=== PATIENT | female | born 1980 | race Caucasian/White ===

== ENCOUNTER 2023-08-02 12:00 | Outpatient (CLI) | payer OTHER ==
[2023-08-02 12:50] LABS: Bilirubin Neg (Negative); Blood, Urine 250 (Negative); Clarity Clear (Clear); Glucose, Urine (Dipstick) Normal (Negative); Ketone, Urine Negative (Negative); Leukocyte 25 (Negative); Nitrite Negative (Negative); Protein, Urine (Dipstick) Negative (Neg-Trace); Urobilinogen Normal mg/dL (Less than 2)
[2023-08-02 12:58] LABS: Hemoglobin 14.9 g/dL (12.0-15.5); Mean Corpuscular HGB CONC 34.7 g/dL (32.0-36.0); Mean Corpuscular Hemoglobin 31.2 pg (27.0-33.0); Mean Platelet Volume 12.2 fl (7.4-10.4); Platelet Count 214 10x3/uL (150-450); RBC Distribution Width 13.2 % (11.5-14.5); Red Blood Cell (RBC) Count 4.78 10x6/uL (3.90-5.03)
[2023-08-02 13:08] LABS: INR-International Normal Ratio 0.9; PTT 24.8 sec (22.0-33.0); Prothrombin Time 10.2 sec (9.5-12.1)
[2023-08-02 13:17] LABS: Anion Gap 12 mmol/L (10-20); BUN (Urea Nitrogen) 14 mg/dL (7.0-18.7); Calc. Creatinine Clearance 0 mL/min (70-130); Calcium 9.3 mg/dL (7.8-10.44); Carbon Dioxide 28 mmol/L (22-29); Chloride 104 mmol/L (98-107); Estimated GFR 86; Glucose 125 mg/dL (70-105); Potassium 4.2 mmol/L (3.5-5.1); Sodium 140 mmol/L (136-145)
[2023-08-02 13:27] LABS: Bacteria/HPF 1+ HPF (None Seen)
[2023-08-02 13:28] LABS: Calcium Oxalate Crystals Rare HPF (None Seen)
== END 2023-08-02 12:01 | disposition home or self-care (01) ==
LOC: LABBT 12:00
PROVIDERS: ATTEND Urology
DX: Z01.818 Encounter for other preprocedural examination (principal); I10 Essential (primary) hypertension; N20.0 Calculus of kidney; E66.01 Morbid (severe) obesity due to excess calories
CPT/HCPCS: 80048; 81001; 85027; 85610; 85730; 87086; 93005; 93010

== ENCOUNTER 2023-08-16 09:10 | Day surgery (SDC) | payer OTHER ==
[2023-08-02 12:36] VITALS: BMI 49.8
[2023-08-16] MEDS ORDERED: SUCCINYLCHOLINE/SOD CL,ISO/PF 200 MG/10 ML SYRINGE FS ONE (11:10)
[2023-08-16] MEDS ORDERED: fentaNYL PF 100 MCG/2 ML SYRINGE ONE ×2 (11:10→12:07)
[2023-08-16] MEDS ORDERED: Rocuronium Bromide 10 MG/ML (10ML VIAL) ONE (11:10)
[2023-08-16] MEDS ORDERED: PROPOFOL 20 ML ONE (11:11)
[2023-08-16] MEDS ORDERED: Midazolam HCl 2 mg/2 ml Vial ONE (11:11)
[2023-08-16] MEDS ORDERED: LevoFLOXacin D5W 500 mg (100 mL) BAG ONE (11:17)
[2023-08-16] MEDS ORDERED: Scopolamine 1 mg/72 hour Patch ONE (11:20)
[2023-08-16] MEDS ORDERED: Lidocaine 1% PF 5 ML VIAL ONE (11:36)
[2023-08-16] MEDS ORDERED: Dexamethasone 20 MG/5 ML VIAL ONE (11:36)
[2023-08-16] MEDS ORDERED: Ketamine In 0.9 % NaCl 50 MG/5 ML SYRINGE ONE (12:34)
[2023-08-16] MEDS ORDERED: Phenazopyridine HCl 100 MG TAB ONE (13:28)
[2023-08-16] MEDS ORDERED: Oxybutynin 5 MG TAB ONE (13:28)
[2023-08-16] MEDS ORDERED: Ondansetron PF 4 MG/2 ML Vial ONE ×2 (13:36→14:42)
[2023-08-16] MEDS ORDERED: Promethazine HCl 25 MG/ML VIAL ONE (14:15)
[2023-08-16] MEDS ORDERED: fentaNYL 50 mcg/mL 1 mL Vial ONE (15:15)
== END 2023-08-16 17:00 | disposition home or self-care (01) ==
LOC: SDC 09:10
PROVIDERS: ATTEND Urology
PROC: 0TC68ZZ Extirpation of Matter from Right Ureter, Via Natural or Artificial Opening Endoscopic (ICD-10-PCS; principal; 2023-08-16)
DX: N20.0 Calculus of kidney (principal); I10 Essential (primary) hypertension; E66.01 Morbid (severe) obesity due to excess calories; Z68.42 Body mass index [BMI] 45.0-49.9, adult; Z79.899 Other long term (current) drug therapy; Z90.49 Acquired absence of other specified parts of digestive tract; Z98.890 Other specified postprocedural states; Z87.891 Personal history of nicotine dependence
CPT/HCPCS: 82365; 88300; C1713; C1747; C1769; C2617; J1100; J1956; J2250; J2405; J2550; J2704; J3010; J3490